=== PATIENT | female | born 1945 | race Caucasian/White ===

== ENCOUNTER → 2018-03-11 13:39 | Outpatient (CLI) | payer MEDICARE, BC ==
[2010-09-20 13:29] VITALS: BMI 31.3
== END | disposition home or self-care (01) ==
LOC: D.MRI 13:39
DX: C75.1 Malignant neoplasm of pituitary gland (principal)

== ENCOUNTER → 2019-03-13 08:41 | Outpatient (CLI) | payer MEDICARE, BC ==
[2010-09-20 13:29] VITALS: BMI 31.3
== END | disposition home or self-care (01) ==
LOC: D.MRI 08:41
PROVIDERS: ATTEND Neurological Surgery
DX: D49.7 Neoplasm of unspecified behavior of endocrine glands and other parts of nervous system (principal)

== ENCOUNTER 2019-12-14 08:12 | Day surgery (SDC) | payer MEDICARE, BC ==
[~2019-12-14] VITALS: Ht 167.6 cm; Wt 79.5 kg
--- NOTE | ~2019-12-14 | OP ---
PATIENT NAME: TOMASZ OREILLY MEDICAL RECORD: [id number] :45 LOCATION:[facility] ADMISSION DATE: SURGEON: SANDOVAL HUI MD DATE OF OPERATION: 12/14/2019 PREOPERATIVE DIAGNOSIS: Left base of tongue mass. POSTOPERATIVE DIAGNOSIS: Left base of tongue mass. PROCEDURE: Direct laryngoscopy and biopsy of left base of tongue. COMPLICATIONS: None. DISPOSITION: Recovery stable. SURGEON: Sandoval Hui MD ANESTHESIA: General orotracheal. BLOOD LOSS: Less than 5 cc. SPECIMENS: Multiple biopsies, left base of the tongue. FINDINGS: Direct laryngoscopy was negative for any other lesions. She had about a 4 cm hard left base of tongue mass from just about the midline to the lateral tongue, did not include the lateral pharyngeal wall or tonsil and did not extend down to the vallecula itself. 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 DESCRIPTION OF PROCEDURE: She was brought to operating room and placed in supine position, sedated and intubated by anesthesia. The table was turned 90 degrees. Head drape was applied and she was positioned for endoscopy. Using a Kleinsasser J laryngoscope and a plastic upper tooth guard, the lateral pharyngeal wolf, piriforms, post-cricoid area, the cords, subglottis, supraglottic larynx, vallecula, and the rest of the base of tongue were examined and no other lesions were identified. The left base of tongue mass was quite large, exophytic, and very prominent. Previous biopsies have been nondiagnostic, so I inserted a Nohemi-Nish mouth gag with a small pediatric blade, elevated on her chest was able to get a good view of the mass ticking out that way. I used a Gruenwald and basically almost divided off like with cutting big, base of the tumor may be 1 x 2 cm and sent that for frozen along with some deeper biopsies into the very hard portion that I was unable to get in the clinic. 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 Because of the size of the mass and for sure to get a diagnosis and alleviate some of her symptoms, I took a large polyp snare and put it around the mass and took off at least two-thirds of the mass probably half at least with the snare and then used a Gruenwald to take some biopsies. I removed some of the very hard portion of the mass to get a flatter not protruding as much given her some symptoms really not much bleeding of the hard white consistency of tumor almost like a chondroma but not quite as easy to cut through with a Gruenwald. Once I did that relatively smooth, I used a mirror and a suction cautery to stop a little bit of bleeding there, really was not much, although just a little bit on the mucosal edge. The tumor itself did not bleed much. I removed the Nohemi-Nish mouth gag and placed some Afrin pledgets in place and left in for about 5 minutes and removed those after the frozen section was back. OPERATIVE REPORT [id number] DENILSONTOMASZWILBER GRESHAM She was awakened, extubated, and transported to recovery in good condition. No complications. TRANSINT:[id number] Voice Confirmation ID: [id number] DOCUMENT ID: [id number] SANDOVAL HUI MD CC: [id number] DICTATION DATE: 12/14/19 1212 STEM MAKER: 12/14/19 182 [facility] 12/14/19 [facility] [address] [place] [address]
--- NOTE | ~2019-12-14 | HP ---
PATIENT: BRANDY OREILLY MEDICAL RECORD: [id number] ACCOUNT: [id number] LOCATION:[facility] : 45 ADMISSION DATE: 12/14/19 PCP: KALLIE MERLOS DO HISTORY AND PHYSICAL EXAMINATION HISTORY OF PRESENT ILLNESS: Brandy is a 74-year-old female with throat symptoms on left side. She was found to have a left base of tongue mass. CT confirms that is the only thing they see, no adenopathy or anything. I did biopsy this in the office, it is very hard, I took 4 biopsies, none of those was particularly diagnostic, inflammatory hyperplasia, bacteria and some yeast. I did not see any dysplasia. She has been admitted for laryngoscopy and a really good biopsy at left base of tongue mass. PAST MEDICAL HISTORY: Includes diabetes, hypertension, reflux, breast cancer. PAST SURGICAL HISTORY: Includes thyroid surgery, cholecystectomy, breast surgery. ALLERGIES: PENICILLIN AND SULFA. CURRENT MEDICATIONS: Pravastatin, lisinopril, omeprazole, Singulair, loratadine. PHYSICAL EXAMINATION: GENERAL: She is healthy-appearing. FACE: Normal, symmetric, no lesions. EYES: Sclerae and conjunctivae are normal. EARS: Canals and TMs are normal. NOSE: No mass, polyps or drainage. ORAL CAVITY, OROPHARYNX: Large exophytic left base of tongue lesion, almost looks like it is the tonsil, but it is really emanating from the base of the tongue. The tonsils are unremarkable. There was irritation of the posterior pharyngeal wall from contact. Laryngoscopy reveals a normal hypopharynx and larynx below that. NECK: No masses, no adenopathy. CHEST: Clear. CARDIOVASCULAR: Regular rate and rhythm, no murmur. EXTREMITIES: Normal. IMPRESSION: Left base of tongue mass. PLAN: Direct laryngoscopy and large biopsy of left base of tongue. TRANSINT:[id number] Voice Confirmation ID: [id number] DOCUMENT ID: [id number] HISTORY AND PHYSICAL [id number] BRANDY OREILLY SANDOVAL HUI MD CC: [id number] DICTATION DATE: 12/11/19 1508 KEYBOARDING CLERK: 12/11/19 1527 [id number] [place] [address]
[~2019-12-14 08:12] MED LIST: LISINOPRIL10 MG PO
[2019-12-14 08:37] LABS: HEMATOCRIT 37.1 % (36.0-48.0); HEMOGLOBIN 11.6 g/dL (12-16); MCH 27.4 pg (26.0-34.0); MCHC 31.3 g/dL (31.0-37.0); MCV 87.5 fL (80.0-100.0); MEAN PLATELET VOLUME 9.9 fL (7.4-10.4); RBC 4.24 10x6/uL (4.00-5.40); RDW 14.6 % (11.5-14.5); WBC 10.3 10x3/uL (4.8-10.8)
[2019-12-14 08:42] LABS: ANION GAP 9.4 mmol/L (8-16); CALCIUM 8.6 mg/dL (8.5-10.1); CARBON DIOXIDE 31.4 mmol/L (21.0-32.0); CREATININE - SERUM 1.2 mg/dL (0.6-1.3); POTASSIUM - SERUM 3.8 mmol/L (3.5-5.1)
[2019-12-14] MEDS ORDERED: CELEXA40 MG PO (09:27)
[2019-12-14] MEDS ORDERED: SYNTHROID88 MCG PO (09:27)
[2019-12-14] MEDS ORDERED: OMEPRAZOLE20 M1 PO (09:27)
[2019-12-14] MEDS ORDERED: GLUCOPHAGE500 MG PO (09:28)
[2019-12-14] MEDS ORDERED: PRAVACHOL20 MG PO (09:28)
[2019-12-14] MEDS ORDERED: DIFLUCAN150 MG PO (09:28)
[2019-12-14] MEDS ORDERED: CORTEF 5 MG TAB5 MG PO ×2 (09:29→09:30)
[2019-12-14 09:33] VITALS: BP 141/76; Ht 167.6 cm; Wt 79.5 kg
--- NOTE | 2019-12-14 13:15 | NUR ---
PT ABLE TO AMBULATE TO BATHROOM WITH STANDBY ASSIST.
--- NOTE | 2019-12-14 13:45 | NUR ---
PT DC INSTRUCTIONS REVIEWED AT THIS TIME, PT VERBALIZES UNDERSTANDING. PT IV REMOVED AT THIS TIME, INTACT, NO REDNESS OR SWELLING NOTED AT SITE.
--- NOTE | 2019-12-14 14:00 | NUR ---
PT LEAVING OPS AT THIS TIME VIA WC, NAD NOTED.
== END 2019-12-14 14:00 | disposition home or self-care (01) ==
LOC: D.OPS 08:12
PROVIDERS: Anesthesiology; ATTEND Otolaryngology
DX: C01 Malignant neoplasm of base of tongue (principal); E11.9 Type 2 diabetes mellitus without complications; I10 Essential (primary) hypertension; K21.9 Gastro-esophageal reflux disease without esophagitis; Z85.3 Personal history of malignant neoplasm of breast

== ENCOUNTER → 2020-04-07 12:43 | Outpatient (CLI) | payer MEDICARE, BC ==
[2019-12-14 09:33] VITALS: BMI 28.3
[~2020-04-07 12:43] MED LIST changes: +CELEXA40 MG PO; +CORTEF 5 MG TAB5 MG PO; +DIFLUCAN150 MG PO; +GLUCOPHAGE500 MG PO; +OMEPRAZOLE20 M1 PO; +PRAVACHOL20 MG PO; +SYNTHROID88 MCG PO
== END | disposition home or self-care (01) ==
LOC: D.RAD 12:43
PROVIDERS: ATTEND Family Medicine
DX: C01 Malignant neoplasm of base of tongue (principal)